=== PATIENT | female | born 1980 | race Caucasian/White ===

== ENCOUNTER 2020-03-14 06:26 | Emergency (ER) | payer OTHER ==
[2020-03-14 06:38] VITALS: BP 141/87
[2020-03-14 07:04] LABS: Bilirubin,Urine NEG (Negative); Blood,Urine MOD (Negative); Color,Urine Yellow (Yellow); Mucus,Urine 1+ /HPF; Protein,Urine <15 mg/dL mg/dL (Negative); Urobilinogen,Urine < 2.0 mg/dL (<2.0)
[2020-03-14] MEDS ORDERED: HYOSCYAMINE SUBL 0.125 MG TAB SL ONE (07:55)
[2020-03-14] MEDS ORDERED: SUCRALFATE 1 GM/10 ML ORAL LIQD PO ONE (07:55)
[2020-03-14 08:05] LABS: Basophils % (Auto) 0.3 % (0.0-1.8); Eosinophils # (Auto) 0.1 K/mm3 (0.0-0.4); Eosinophils % (Auto) 0.6 % (0.0-4.3); Hematocrit 34.8 % (30.3-42.9); Hemoglobin 10.9 gm/dl (10.1-14.3); Lymphocytes # (Auto) 1.6 K/mm3 (1.2-5.4); Lymphocytes % (Auto) 18.2 % (13.4-35.0); Mean Corpuscular HGB Conc 31 % (30-34); Monocytes # (Auto) 0.6 K/mm3 (0.0-0.8); Monocytes % (Auto) 7.3 % (0.0-7.3); Platelet Count 393 K/mm3 (140-440); Red Blood Count 5.56 M/mm3 (3.65-5.03); Red Cell Distribution Width 17.7 % (13.2-15.2)
[2020-03-14 08:12] LABS: Mean Corpuscular Volume 63 fl (79-97)
--- NOTE | 2020-03-14 08:13 | Emergency Department Report ---
ED Abdominal Pain HPI - General Chief Complaint: Abdominal Pain Stated Complaint: ABDOMINAL PAIN Time Seen by Provider: 03/14/20 07:54 Source: patient, puncher Mode of arrival: Ambulatory Limitations: Language Barrier - History of Present Illness Initial Comments: 40-year-old French female presents to the emergency room complaining of upper abdominal pain since last night after consuming a meal. Patient denies any nausea vomiting. Patient states that it just hurts. Patient does report that she has a history of the same. She informed that she took Pepcid 10 mg at 5 AM this morning. Patient reports she has a past medical history of GERD. MD Complaint: abdominal pain Location: epigastric Radiation: none Migration to: no migration Severity scale (0 -10): 5 Quality: sharp, burning Consistency: constant Improves With: nothing Worsens With: eating Associated Symptoms: denies: nausea, vomiting, diarrhea, fever, constipation - Related Data LMP Date: 03/07/20 Previous Rx's Medication Instructions Recorded Last Taken Type Famotidine [Pepcid] 20 mg PO BID #10 tablet 05/30/14 Unknown Rx Lansoprazole [Prevacid] 30 mg PO QDAY #30 cap 05/30/14 Unknown Rx Nitrofurantoin [place]/M-Cryst 100 mg PO Q12HR 7 Days #14 capsule 03/14/20 Unknown Rx [Macrobid CAP] Omeprazole 40 mg PO QDAY #30 capsule. 03/14/20 Unknown Rx Sucralfate [Carafate] 1 gm PO ACHS #15 tablet 03/14/20 Unknown Rx Allergies Allergy/AdvReac Type Severity Reaction Status Date / Time No Known Allergies Allergy Unverified 05/30/14 07:51 ED Review of Systems ROS: Stated complaint: ABDOMINAL PAIN Other details as noted in HPI Comment: All other systems reviewed and negative ED Past Medical Hx - Past Medical History Previous Medical History?: Yes Hx GERD: Yes - Surgical History Past Surgical History?: Yes Additional Surgical History: - Social History Smoking Status: Never Smoker Substance Use Type: None - Medications Home Medications: Home Medications Medication Instructions Recorded Confirmed Last Taken Type Famotidine [Pepcid] 20 mg PO BID #10 tablet 05/30/14 Unknown Rx Lansoprazole [Prevacid] 30 mg PO QDAY #30 cap 05/30/14 Unknown Rx Nitrofurantoin [place]/M-Cryst 100 mg PO Q12HR 7 Days #14 capsule 03/14/20 Unknown Rx [Macrobid CAP] Omeprazole 40 mg PO QDAY #30 capsule. 03/14/20 Unknown Rx Sucralfate [Carafate] 1 gm PO ACHS #15 tablet 03/14/20 Unknown Rx ED Physical Exam - General Limitations: Language Barrier General appearance: alert, in distress - Head Head exam: Present: atraumatic, normocephalic - Eye Eye exam: Present: normal appearance - ENT ENT exam: Present: mucous membranes moist - Neck Neck exam: Present: normal inspection, full ROM - Respiratory Respiratory exam: Present: normal lung sounds bilaterally. Absent: respiratory distress - Cardiovascular Cardiovascular Exam: Present: regular rate, normal rhythm. Absent: systolic murmur, diastolic murmur, rubs, gallop - GI/Abdominal GI/Abdominal exam: Present: soft, tenderness, normal bowel sounds. Absent: distended, guarding, rebound - Back Exam Back exam: Present: normal inspection - Neurological Exam Neurological exam: Present: alert, oriented X3, normal gait - Psychiatric Psychiatric exam: Present: normal affect, normal mood - Skin Skin exam: Present: warm, dry, intact, normal color. Absent: rash ED Course Vital Signs 03/14/20 06:32 Temperature 98.0 F Pulse Rate 103 H Respiratory 18 Rate Blood Pressure 141/87 O2 Sat by Pulse 98 Oximetry - Reevaluation(s) Reevaluation #1: 03/14/20 08:50 Patient reports she feels a little bit better. ED Medical Decision Making - Lab Data Laboratory Tests 03/14/20 03/14/20 03/14/20 07:02 07:02 Unknown WBC 8.9 RBC 5.56 H Hgb 10.9 Hct 34.8 MCV 63 L MCH 20 L MCHC 31 RDW 17.7 H Plt Count 393 Lymph % (Auto) 18.2 [place] % (Auto) 7.3 Eos % (Auto) 0.6 Baso % (Auto) 0.3 Lymph # 1.6 [place] # 0.6 Eos # 0.1 Baso # 0.0 Seg Neutrophils % 73.6 H Seg Neutrophils # 6.6 Sodium 136 L Potassium 4.5 Chloride 102.4 Carbon Dioxide 20 L Anion Gap 18 BUN 20 H Creatinine 0.5 L Estimated GFR > 60 BUN/Creatinine Ratio 40 Glucose 123 H Calcium 9.0 Total Bilirubin < 0.20 AST 32 ALT 45 Alkaline Phosphatase 66 Total Protein 7.7 Albumin 4.2 Albumin/Globulin Ratio 1.2 Lipase 21 Urine Color Yellow Urine Turbidity Slightly-cloudy Urine pH 5.0 Ur Specific [place] 1.023 Urine Protein <15 mg/dl Urine Glucose (UA) Neg Urine Ketones Neg Urine Blood Mod Urine Nitrite Neg Urine Bilirubin Neg Urine Urobilinogen < 2.0 Ur Leukocyte Esterase Lg Urine WBC (Auto) 45.0 H Urine RBC (Auto) 7.0 U Epithel Cells (Auto) 8.0 Urine Mucus 1+ - Medical Decision Making 40-year-old French female presents to the emergency room complaining of upper abdominal pain since last night after consuming a meal. Patient denies any nausea vomiting. Patient states that it just hurts. Patient does report that she has a history of the same. She informed that she took Pepcid 10 mg at 5 AM this morning. Patient reports she has a past medical history of GERD. Patient is given Carafate 1 g and Levsin sublingual. It appears the patient has a urinary tract infection will treat with Macrobid. Will discharge patient on Carafate 1 g before eating a meal and at bedtime. Recommend to take omeprazole 40 mg daily and to follow-up with ict educator. Critical care attestation.: If time is entered above; I have spent that time in minutes in the direct care of this critically ill patient, excluding procedure time. ED Disposition Clinical Impression: GERD (gastroesophageal reflux disease), Acute gastritis, UTI (urinary tract infection) Disposition: DC- TO HOME OR SELFCARE Is pt being admited?: No Does the pt Need Aspirin: No Condition: Stable Instructions: Abdominal Pain (ED), Gastroesophageal Reflux Disease (ED), Urinary Tract Infection in Women (ED) Additional Instructions: Please take medications as prescribed. Prescriptions: Sucralfate [Carafate] 1 gm PO ACHS #15 tablet Nitrofurantoin [place]/M-Cryst [Macrobid CAP] 100 mg PO Q12HR 7 Days #14 capsule Omeprazole 40 mg PO QDAY #30 capsule. Referrals: PRIMARY CARE, [Primary Care Provider] - 3-5 Days [facility] [Provider Group] - 3-5 Days Forms: Work/School Release Form(ED)
[2020-03-14 08:20] LABS: Alanine Aminotransferase 45 units/L (7-56); Albumin 4.2 g/dL (3.9-5); BUN/Creatinine Ratio 40; Blood Urea Nitrogen 20 mg/dL (7-17); Hemolysis Index 12
== END 2020-03-14 08:55 | disposition home or self-care (01) ==
LOC: ED 06:26
DX: K21.9 Gastro-esophageal reflux disease without esophagitis (principal); K29.00 Acute gastritis without bleeding; N39.0 Urinary tract infection, site not specified
CPT/HCPCS: 36415; 80053; 81001; 83690; 85025; 87086